=== PATIENT | female | born 1945 | race Caucasian/White ===

== ENCOUNTER 2024-07-24 10:18 | Outpatient (OUT) | payer MEDICARE, SELFPAY ==
--- NOTE | 2024-07-24 | XR_ITS ---
[address] [address] Patient Name: MARGY MACIEL MRN: [id number] date: 1945 Sex: F Assigned Patient Location: Current Patient Location: Accession/Order Number: [id number] Exam Date: 07/24/2024 12:28 Report Date: 07/24/2024 12:29 At the request of: AALIYAH KASPER MD Procedure: XR lumbar spine min 4V LUMBAR SPINE - 4 views CLINICAL HISTORY: Follow-up spinal surgery. COMPARISON: None FINDINGS: Posterior hardware fixation L3-S1 without hardware complication. Cement augmentation T12 vertebral body. Vertebral body heights appear maintained. Moderate degenerative disc disease L1-L2. XR/XR lumbar spine min 4V IMPRESSION: NO HARDWARE COMPLICATION. Impression dictated by: Raudel Lauren Jr., D.O.07/24/2024 12:29 PM Dictation Location: [place] [address] Electronically authenticated by: [id number] Date: 07/24/2024 12:29
== END 2024-07-24 10:19 | disposition home or self-care (01) ==
LOC: EC 10:19
PROVIDERS: Visit Provider Orthopaedic Surgery Orthopaedic Surgery of the Spine
DX: M48.061 Spinal stenosis, lumbar region without neurogenic claudication (principal)
CPT/HCPCS: 72110